=== PATIENT | male | born 1950 | race Caucasian/White ===

== ENCOUNTER → 2016-05-12 | Outpatient (CLI) | payer MEDICARE ==
[~2016-05-12] MED LIST: ALBUTEROL17 GM INH; AMOXICILLIN PO; ASPIRIN81 M2 PO; BAYER ASPIRIN325 M1 PO; BAYER CHEWABLE81 MG PO; BENAZEPRIL HCL10 M2 PO; CARAFATE1 G PO; CARAFATE1 GM PO; CEPHALEXIN500 M1 PO; CIPRO PO; COMPAZINE5 MG; CORDARONE200 M1 PO; COUMADIN2.5 MG PO; COUMADIN5 MG PO; COUMADIN7.5 MG PO; DEXILANT60 MG PO; DICYCLOMINE HCL20 MG PO; FAMOTIDINE PO; FLAGYL PO; LASIX20 MG PO; LOPRESSOR PO; LOTENSIN20 MG PO; METOPROLOL TAR100 MG PO; METOPROLOL TAR25 MG PO; MIRALAX17 GM PO; NABUMETONE500 MG PO; NO MEDICATIONS; ONDANSETRON ODT4 MG PO; PERCOCET 5/321 UDTAB PO; PHENERGAN PO; PRILOSEC; PRILOSEC PO; PROTONIX PO; REGLAN PO; REGLAN10 MG; VANTIN200 MG PO; VITAMIN B-121000 MC1 PO; XARELTO15 MG PO; ZOFRAN PO
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
== END | disposition home or self-care (01) ==
LOC: CCAT 16:01
DX: M54.12 Radiculopathy, cervical region (principal)
CPT/HCPCS: 72125

== ENCOUNTER → 2016-05-29 | Outpatient (CLI) | payer MEDICARE ==
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
== END | disposition home or self-care (01) ==
LOC: CCAT 10:14
DX: M54.16 Radiculopathy, lumbar region (principal); M51.36 Other intervertebral disc degeneration, lumbar region; M43.8X4 Other specified deforming dorsopathies, thoracic region
CPT/HCPCS: 72131